=== PATIENT | female | born 2000 | race Caucasian/White ===

== ENCOUNTER 2021-11-10 10:35 | Emergency (ER) | payer OTHER ==
[~2021-11-10] VITALS: Ht 165 cm; Wt 65.0 kg
[2021-11-10 10:39] VITALS: TEMP 97.5
[2021-11-10 14:04] VITALS: BP 106/92; PULSE 79
== END 2021-11-10 14:04 | disposition home or self-care (01) ==
LOC: COL.ER 10:35
DX: T26.91XA Corrosion of right eye and adnexa, part unspecified, initial encounter (principal)
CPT/HCPCS: J7030